=== PATIENT | female | born 1960 | race Caucasian/White ===

== ENCOUNTER 2017-03-28 16:58 | Emergency (ER) | payer OTHER ==
[~2017-03-28] VITALS: Ht 175.3 cm; Wt 86.2 kg
[2017-03-28] MEDS ORDERED: ALLE180T33 PO (17:08)
[2017-03-28] MEDS ORDERED: PIRO20CA2 (17:08)
[2017-03-28] MEDS ORDERED: ADV250INH (17:08)
[2017-03-28] MEDS ORDERED: PROA1AER (17:08)
[2017-03-28] MEDS ORDERED: HYALURONIC ACID INJ (17:08)
[2017-03-28 19:06] VITALS: BP 140/80
--- NOTE | 2017-03-29 06:44 | REP ---
RIGHT WRIST, FOUR VIEWS: HISTORY: Trauma. There is no acute fracture or dislocation. The joint spaces are normal in appearance. IMPRESSION: There is no acute fracture or dislocation. Signed by Mc Carlos MD 03/29/2017 08:26 A
--- NOTE | 2017-03-29 06:46 | REP ---
LUMBAR SPINE, FIVE VIEWS: HISTORY: Trauma. There is no acute fracture. The L3-4 through L5-S1 intervertebral discs are decreased in height consistent with disc degeneration. Osteophytes are present at L1, 2, 4 and 5. There is narrowing of the L4-5 and L5-S1 facet joints. There are 4 mm of grade 1 spondylolisthesis of L4 on 5. IMPRESSION: Degenerative change as described above. Signed by Mc Carlos MD 03/29/2017 08:27 A
== END 2017-03-28 19:10 | disposition home or self-care (01) ==
LOC: M ED 17:51
DX: S33.5XXA Sprain of ligaments of lumbar spine, initial encounter (principal); S63.501A Unspecified sprain of right wrist, initial encounter; S70.02XA Contusion of left hip, initial encounter; V49.40XA Driver injured in collision with unspecified motor vehicles in traffic accident, initial encounter; Y92.410 Unspecified street and highway as the place of occurrence of the external cause; Y93.89 Activity, other specified; Y99.9 Unspecified external cause status

== ENCOUNTER → 2017-12-13 | Outpatient (CLI) | payer OTHER | LOC: M EKG 16:41 | DX: Z01.810 Encounter for preprocedural cardiovascular examination (principal); M67.432 Ganglion, left wrist | CPT/HCPCS: 93005 ==

== ENCOUNTER → 2019-08-04 | Outpatient (CLI) | payer OTHER ==
[~2019-08-04] MED LIST: ADV250INH; ALLE180T33 PO; HYALURONIC ACID INJ; PIRO20CA2; PROAAER10
--- NOTE | 2019-08-04 12:38 | REP ---
Right wrist series: Four views. History: Pain. Comparison study: March 28, 2017. Findings: Four views of the right wrist demonstrate overall normal mineralization. No fracture or subluxation is seen. No evidence of arthropathy. Impression: Negative radiographs of the right wrist. Electronically Signed by Enrrique Kuo MD 08/04/2019 12:30 P
== END ==
LOC: M WUC 10:11
PROVIDERS: ATTEND Physician Assistant
DX: M25.531 Pain in right wrist (principal)

== ENCOUNTER → 2019-10-05 | Outpatient (CLI) | payer OTHER ==
--- NOTE | 2019-10-05 18:20 | REP ---
HISTORY: Pain after trauma. COMPARISON: Frontal view of the chest is 09/15/2012. Multiple views of the left ribs show fractures of the left 3rd through 5th ribs inclusive and possibly the 6th rib as well. The accompanying frontal view of the chest shows mild left CP angle blunting possibly secondary to left lower lobe subsegmental atelectatic change due to respiratory splinting from pain. The lung gaviria are otherwise clear. The heart is not enlarged. IMPRESSION: Left rib fractures and other findings as described above. Electronically Signed by Jorge Montes De Oca DO 10/05/2019 07:46 P
== END ==
LOC: M WUC 17:28
PROVIDERS: ATTEND Physician Assistant
DX: S22.42XA Multiple fractures of ribs, left side, initial encounter for closed fracture (principal); X58.XXXA Exposure to other specified factors, initial encounter

== ENCOUNTER → 2021-12-17 | Outpatient (CLI) | payer OTHER | LOC: M WHC 09:16 | PROVIDERS: ATTEND Family Medicine | DX: Z12.31 Encounter for screening mammogram for malignant neoplasm of breast (principal); Z13.820 Encounter for screening for osteoporosis; Z78.0 Asymptomatic menopausal state ==

== ENCOUNTER → 2022-09-30 | Outpatient (CLI) | payer OTHER | LOC: M EKG 13:20 | PROVIDERS: ATTEND Orthopaedic Surgery | DX: M23.203 Derangement of unspecified medial meniscus due to old tear or injury, right knee (principal); M17.11 Unilateral primary osteoarthritis, right knee ==

== ENCOUNTER → 2024-04-30 | Outpatient (CLI) | payer OTHER | LOC: M RAD 12:37 | PROVIDERS: ATTEND Physician Assistant | DX: L03.011 Cellulitis of right finger (principal) ==

== ENCOUNTER 2024-05-30 02:42 | Emergency (ER) | payer OTHER ==
[~2024-05-30] VITALS: Ht 175.3 cm; Wt 93.8 kg
[2024-05-30 02:42] VITALS: BP 148/98; TEMP 96.7; O2SAT 98
[2024-05-30] MEDS: LIDOCAINE 2% MDV 20ML VIAL SC ONE (04:25)
[2024-05-30] MEDS ORDERED: DOXY-323 PO (04:55)
[2024-05-30] MEDS: DOXYCYCLINE HYCLATE 100MG TABLET PO ONE (05:11)
[2024-05-30] MEDS: NEOSPORIN OINT 0.9 GM PKT TOP ONE (05:21)
== END 2024-05-30 05:51 | disposition home or self-care (01) ==
LOC: M ED 02:42
DX: S61.412A Laceration without foreign body of left hand, initial encounter (principal); W54.0XXA Bitten by dog, initial encounter; Y92.019 Unspecified place in single-family (private) house as the place of occurrence of the external cause; Y93.9 Activity, unspecified; Y99.9 Unspecified external cause status; Z88.0 Allergy status to penicillin; Z88.2 Allergy status to sulfonamides; Z88.1 Allergy status to other antibiotic agents; Z88.8 Allergy status to other drugs, medicaments and biological substances; Z79.51 Long term (current) use of inhaled steroids; Z79.2 Long term (current) use of antibiotics; Z79.899 Other long term (current) drug therapy

== ENCOUNTER 2024-06-01 06:52 | Emergency (ER) | payer OTHER ==
[~2024-06-01] VITALS: Ht 175.3 cm; Wt 91.1 kg
[~2024-06-01 06:52] MED LIST changes: +DOXY-323 PO
[2024-06-01] MEDS ORDERED: HYDR-3490 (07:37)
[2024-06-01] MEDS ORDERED: LOSA100T46 (07:37)
[2024-06-01 08:25] LABS: BASO % 0.5 % (0.0-1.0); EOS # 0.5 10^3/uL (0.0-0.5); EOS % 7.8 % (0.0-3.0); HEMOGLOBIN 12.8 g/dl (12.0-15.5); LYMPH % 15.5 % (24.0-44.0); MEAN CORPUSCULAR HEMOGLOBIN 32.8 pg (27.0-33.0); MEAN CORPUSCULAR HGB CONC 34.6 g/dl (32.0-36.5); MEAN CORPUSCULAR VOLUME 94.9 fl (80.0-96.0); MONO # 0.4 10^3/uL (0.0-0.8); NEUTROPHILS # 4.3 10^3/uL (1.5-8.5); NEUTROPHILS % 68.7 % (36.0-66.0); PLATELET COUNT, AUTOMATED 217 10^3/uL (150-450); WHITE BLOOD COUNT 6.3 10^3/uL (4.0-10.0)
[2024-06-01] MEDS: ACETAMINOPHEN 325 MG TAB PO ONE (08:25)
[2024-06-01 08:51] LABS: ERYTHROCYTE SEDIMENTATION RATE 32 mm/hr (0-30)
[2024-06-01] MEDS: DOXYCYCLINE HYCLATE 100 MG in D5W MINI-BAG PLUS 100 ML IV ONE (08:58)
[2024-06-01 09:23] LABS: BLOOD UREA NITROGEN 23 MG/DL (9-23); CARBON DIOXIDE LEVEL 26 MMOL/L (20-31); CHLORIDE LEVEL 107 MMOL/L (98-107); CREATININE FOR GFR 0.87 MG/DL (0.55-1.30); GLOMERULAR FILTRATION RATE > 60.0 (>45); GLUCOSE, FASTING 96 MG/DL (74-106); POTASSIUM SERUM 3.2 MMOL/L (3.5-5.1); SODIUM LEVEL 139 MMOL/L (136-145)
[2024-06-01 10:32] VITALS: BP 137/73; TEMP 96.7; O2SAT 97
== END 2024-06-01 10:48 | disposition home or self-care (01) ==
LOC: M ED 06:52
DX: S61.452A Open bite of left hand, initial encounter (principal); Y92.019 Unspecified place in single-family (private) house as the place of occurrence of the external cause; Y93.9 Activity, unspecified; Y99.9 Unspecified external cause status; W54.0XXA Bitten by dog, initial encounter; J45.909 Unspecified asthma, uncomplicated; F10.10 Alcohol abuse, uncomplicated; Z88.0 Allergy status to penicillin; Z88.1 Allergy status to other antibiotic agents; Z88.2 Allergy status to sulfonamides; Z88.8 Allergy status to other drugs, medicaments and biological substances; Z91.030 Bee allergy status; Z79.51 Long term (current) use of inhaled steroids; Z79.2 Long term (current) use of antibiotics; Z79.899 Other long term (current) drug therapy

== ENCOUNTER → 2024-11-14 | Outpatient (CLI) | payer OTHER ==
[~2024-11-14] MED LIST changes: -ADV250INH; +ADVA1AER9; -DOXY-323 PO; +DOXY-441 PO; +HYDR-3490; +LOSA100T46
== END ==
LOC: M WHC 06:54
PROVIDERS: ATTEND Family Medicine
DX: Z12.31 Encounter for screening mammogram for malignant neoplasm of breast (principal)

== ENCOUNTER 2025-02-14 09:19 | Day surgery (SDC) | payer OTHER ==
[~2025-02-14] VITALS: Ht 175.3 cm; Wt 90.3 kg
[~2025-02-14 09:19] MED LIST changes: -ADVA1AER9; +ADVA1AER9 INH; +ALBU8.5H; +FLUT1BLS2; -HYDR-3490; +HYDR-3490 PO; -LOSA100T46; +LOSA100T46 PO; -PIRO20CA2; +PIRO20CA2 PO
[2025-02-14] MEDS ORDERED: propofoL 200 MG/20 ML VIAL As Ordered ONE (10:40)
[2025-02-14] MEDS ORDERED: LIDOCAINE 2% 100MG/5ML SDV (FOR ANES.) As Ordered ONE (10:40)
[2025-02-14] MEDS ORDERED: ONDANSETRON 4MG 2ML VIAL As Ordered ONE (11:49)
[2025-02-14] MEDS ORDERED: SIMETHICONE 40MG/0.6ML DROPS 30ML As Ordered ONE (11:49)
[2025-02-14 12:05] VITALS: TEMP 98
[2025-02-14 12:22] VITALS: BP 169/90; O2SAT 95
== END 2025-02-14 12:29 | disposition home or self-care (01) ==
LOC: M OPP 09:19
PROVIDERS: ATTEND Surgery
DX: Z12.11 Encounter for screening for malignant neoplasm of colon (principal); Z88.0 Allergy status to penicillin; Z88.1 Allergy status to other antibiotic agents; Z88.2 Allergy status to sulfonamides; Z88.8 Allergy status to other drugs, medicaments and biological substances; Z91.030 Bee allergy status; Z91.040 Latex allergy status; Z91.048 Other nonmedicinal substance allergy status; Z79.51 Long term (current) use of inhaled steroids; J45.909 Unspecified asthma, uncomplicated
CPT/HCPCS: 45378; J2405